=== PATIENT | female | born 1960 | race Two or more races ===

== ENCOUNTER 2024-01-04 16:16 | Emergency (ER) | payer OTHER ==
[~2024-01-04] VITALS: Ht 167.6 cm; Wt 54.4 kg
[2024-01-04] MEDS ORDERED: AMLODIPINE-OLM1 EAC2 PO (17:00)
[2024-01-04] MEDS ORDERED: ENALAPRILAT DIHYDRATE 2.5 MG/2 ML VIAL IV STA (17:25)
[2024-01-04] MEDS ORDERED: ENALAPRILAT DIHYDRATE 1.25 MG/ML VIAL IV ONE (17:46)
[2024-01-04 17:51] LABS: HEMATOCRIT 36.6 % (36.0-45.00); HEMOGLOBIN 12.7 g/dL (12.0-15.00); MEAN CORPUSCULAR HEMOGLOBIN 32.3 pg (27.00-32.0); MEAN CORPUSCULAR HGB CONC 34.7 g/dl (32.0-36.0); PLATELET COUNT 330 K/uL (150-450); RED BLOOD COUNT 3.94 M/uL (4.00-6.00); RED CELL DISTRIBUTION WIDTH 13.7 % (11.5-14.5)
[2024-01-04 18:11] LABS: CALCIUM 9.2 mg/dL (8.5-10.1); CREATININE SERUM 0.98 mg/dL (0.55-1.02); GFR 57.32; POTASSIUM 4.31 mEq/L (3.5-5.1)
[2024-01-05] MEDS ORDERED: WELLBUTRIN XL300 MG (10:57)
[2024-01-05] MEDS ORDERED: AMLODIPINE-OLM1 EAC2 (10:58)
== END 2024-01-04 19:07 | disposition home or self-care (01) ==
LOC: ER 16:17
PROVIDERS: General Practice
DX: I10 Essential (primary) hypertension (principal)

== ENCOUNTER 2024-01-05 10:47 | Emergency (ER) | payer OTHER ==
[~2024-01-05] VITALS: Ht 167.6 cm; Wt 54.4 kg
[~2024-01-05 10:47] MED LIST: AMLODIPINE-OLM1 EAC2 PO
[2024-01-05] MEDS ORDERED: WELLBUTRIN XL300 MG (10:57)
[2024-01-05] MEDS ORDERED: AMLODIPINE-OLM1 EAC2 (10:58)
[2024-01-05] MEDS ORDERED: ENALAPRIL MALEATE 2.5 MG TABLET PO SCH (11:36)
[2024-01-05] MEDS ORDERED: ENALAPRIL MALEATE 5 MG TABLET PO SCH (11:39)
[2024-01-05 12:44] LABS: HEMATOCRIT 38.8 % (36.0-45.00); HEMOGLOBIN 13.3 g/dL (12.0-15.00); MEAN CELL VOLUME 93.5 fL (80.00-100.00); MEAN CORPUSCULAR HGB CONC 34.3 g/dl (32.0-36.0); PLATELET COUNT 336 K/uL (150-450); RED BLOOD COUNT 4.16 M/uL (4.00-6.00); RED CELL DISTRIBUTION WIDTH 13.6 % (11.5-14.5)
[2024-01-05 13:31] LABS: CALCIUM 9.8 mg/dL (8.5-10.1); CREATININE SERUM 0.78 mg/dL (0.55-1.02); GFR 74.59; POTASSIUM 4.38 mEq/L (3.5-5.1)
== END 2024-01-05 15:19 | disposition home or self-care (01) ==
LOC: ER 10:48
PROVIDERS: Emergency Medicine
DX: I10 Essential (primary) hypertension (principal)

== ENCOUNTER 2024-01-10 21:25 | Emergency (ER) | payer OTHER ==
[~2024-01-10] VITALS: Ht 167.6 cm; Wt 54.4 kg
[~2024-01-10 21:25] MED LIST changes: +AMLODIPINE-OLM1 EAC2; +WELLBUTRIN XL300 MG
[2024-01-10] MEDS ORDERED: NORVASC2.5 M1 PO (21:32)
[2024-01-10] MEDS ORDERED: VASOTEC20 M1 PO (21:32)
[2024-01-11] MEDS ORDERED: CLONIDINE HCL 0.1 MG TABLET PO ONE (00:23)
[2024-01-11] MEDS ORDERED: ENALAPRILAT DIHYDRATE 1.25 MG/ML VIAL IV ONE ×2 (00:24→00:30)
[2024-01-11] MEDS ORDERED: cloNIDine HCL 0.2 MG TABLET PO ONE (00:30)
[2024-01-11 01:04] LABS: HEMATOCRIT 37.3 % (36.0-45.00); HEMOGLOBIN 12.8 g/dL (12.0-15.00); MEAN CELL VOLUME 93.8 fL (80.00-100.00); MEAN CORPUSCULAR HEMOGLOBIN 32.3 pg (27.00-32.0); MEAN CORPUSCULAR HGB CONC 34.4 g/dl (32.0-36.0); PLATELET COUNT 318 K/uL (150-450); RED BLOOD COUNT 3.98 M/uL (4.00-6.00); RED CELL DISTRIBUTION WIDTH 13.3 % (11.5-14.5)
[2024-01-11 01:20] LABS: ALBUMIN 4.2 gm/dL (3.4-5.0); BILIRUBIN TOTAL 0.3 mg/dL (0.3-1.2); CALCIUM 9.9 mg/dL (8.5-10.1); CREATININE SERUM 0.75 mg/dL (0.55-1.02); GFR 78.05; GLOBULINA 3.7 G/DL (2.4-3.5); POTASSIUM 3.95 mEq/L (3.5-5.1); TOTAL PROTEIN 7.9 gm/dL (6.4-8.2)
[2024-01-11] MEDS ORDERED: CATAPRES0.3 MG PO (02:04)
== END 2024-01-11 02:23 | disposition home or self-care (01) ==
LOC: ER 21:26
PROVIDERS: General Practice
DX: I16.9 Hypertensive crisis, unspecified (principal); I10 Essential (primary) hypertension
CPT/HCPCS: 36415; 96365; 99282; J3490

== ENCOUNTER 2024-01-11 13:13 | Emergency (ER) | payer OTHER ==
[~2024-01-11] VITALS: Ht 312.4 cm; Wt 54.4 kg
[~2024-01-11 13:13] MED LIST changes: +CATAPRES0.3 MG PO; +NORVASC2.5 M1 PO; +VASOTEC20 M1 PO
[2024-01-11] MEDS ORDERED: CLONIDINE HCL 0.1 MG TABLET PO ONE ×2 (15:12→15:15)
== END 2024-01-11 16:23 | disposition home or self-care (01) ==
LOC: ER 13:15
DX: I10 Essential (primary) hypertension (principal)

== ENCOUNTER 2024-01-14 04:34 | Emergency (ER) | payer OTHER ==
[~2024-01-14] VITALS: Ht 167.6 cm; Wt 54.4 kg
[2024-01-14] MEDS ORDERED: ENALAPRIL M1 MG/1 ML (04:39)
[2024-01-14] MEDS ORDERED: NORVASC2.5 M1 (04:40)
[2024-01-14] MEDS ORDERED: FUROsemide 20 MG TABLET PO STA (05:36)
[2024-01-14] MEDS ORDERED: FUROsemide 20 MG TABLET PO ONE (05:42)
[2024-01-14] MEDS ORDERED: ENALAPRIL MALEATE 20 MG TABLET PO STA (07:56)
[2024-01-14] MEDS ORDERED: AMLODIPINE BESYLATE 2.5 MG TABLET PO STA (07:57)
== END 2024-01-14 09:12 ==
LOC: ER
DX: I10 Essential (primary) hypertension (principal)